=== PATIENT | female | born 1945 | race Caucasian/White ===

== ENCOUNTER 2020-10-03 06:53 | Emergency (ER) | payer OTHER, SELFPAY ==
[~2020-10-03] VITALS: Ht 152.4 cm; Wt 81.6 kg
[2020-10-03 07:58] VITALS: Ht 152.4 cm; Wt 81.6 kg
[2020-10-03 12:41] LABS: CALCIUM 8.3 mg/dL (8.5-10.1); CARBON DIOXIDE 23.6 mmol/L (21-32); CHLORIDE SERUM 100 mmol/L (98-107); CREATININE SERUM 1.2 mg/dL (0.6-1.0); GLUCOSE SERUM 189 mg/dL (74-106); POTASSIUM SERUM 3.9 mmol/L (3.5-5.1); SODIUM SERUM 135 mmol/L (136-145)
[2020-10-03 12:45] LABS: ALKALINE PHOSPHATASE 83 U/L (46-116); ALT/SGPT 29 U/L (14-59); AST/SGOT 47 U/L (15-37); BILIRUBIN TOTAL 0.7 mg/dL (0.20-1.00); LIPASE 56 IU/L (73-393); TOTAL PROTEIN, SERUM 6.6 g/dL (6.4-8.2)
[2020-10-03 12:46] LABS: ALBUMIN 3.1 g/dL (3.4-5.0)
[2020-10-03 13:04] LABS: microscopic required? YES; urine erythrocyte 2+ (NEGATIVE)
[2020-10-03 13:10] LABS: BASOPHIL % 0.6 % (0.2-1.3); PLATELET COUNT 180 x10^3mcL (179-408); RED CELL DISTRIBUTION WIDTH 14.5 % (12.3-17.7)
[2020-10-03 16:10] VITALS: BP 145/84
== END 2020-10-03 17:35 | disposition home or self-care (01) ==
LOC: ED 06:53
PROVIDERS: Emergency Medicine
DX: U07.1 COVID-19 (principal); N39.0 Urinary tract infection, site not specified; J45.909 Unspecified asthma, uncomplicated; I10 Essential (primary) hypertension; E11.9 Type 2 diabetes mellitus without complications; M06.9 Rheumatoid arthritis, unspecified; M79.7 Fibromyalgia
CPT/HCPCS: 82962; Q0163; U0003